=== PATIENT | female | born 1980 | race African-American/Black ===

== ENCOUNTER → 2019-04-07 | Outpatient (REF) | payer OTHER ==
[2019-04-07 21:51] LABS: APPEARANCE, URINE CLOUDY (CLEAR); BACTERIA, URINE AUTO NEGATIVE (NEGATIVE); BILIRUBIN, URINE AUTO NEGATIVE (NEGATIVE); BLOOD, URINE BLOOD 1+ (NEGATIVE); CALCIUM OXALATE CRYSTALS SMALL; COLOR, URINE YELLOW (YELLOW); GLUCOSE, URINE (UA) AUTO NEGATIVE (NEGATIVE); KETONE, URINE AUTO NEGATIVE (NEGATIVE); LEUKOCYTE ESTERASE, URINE AUTO 1+ (NEGATIVE); MUCUS, URINE SMALL (NEGATIVE); NITRITE, URINE AUTO NEGATIVE (NEGATIVE); PROTEIN, URINE AUTO NEGATIVE (NEGATIVE); RBC, URINE AUTO 5 /HPF (0-3); SPECIFIC GRAVITY URINE AUTO 1.024 (1.002-1.035); SQUAMOUS EPITHELIAL CELL UR AU 18 /HPF (0-6); WBC, URINE AUTO 14 /HPF (0-3)
== END ==
LOC: M LAB REF 10:34
PROVIDERS: ATTEND Nurse Practitioner Family
DX: N39.0 Urinary tract infection, site not specified (principal)

== ENCOUNTER → 2019-12-08 | Outpatient (REF) | payer OTHER ==
[2019-12-08 21:30] LABS: APPEARANCE, URINE CLOUDY (CLEAR); BACTERIA, URINE AUTO 1+ (NEGATIVE); BILIRUBIN, URINE AUTO NEGATIVE (NEGATIVE); BLOOD, URINE BLOOD NEGATIVE (NEGATIVE); COLOR, URINE YELLOW (YELLOW); GLUCOSE, URINE (UA) AUTO NEGATIVE (NEGATIVE); KETONE, URINE AUTO TRACE mg/dL (NEGATIVE); LEUKOCYTE ESTERASE, URINE AUTO TRACE (NEGATIVE); MUCUS, URINE SMALL (NEGATIVE); NITRITE, URINE AUTO NEGATIVE (NEGATIVE); PROTEIN, URINE AUTO 1+ mg/dL (NEGATIVE); RBC, URINE AUTO 12 /HPF (0-3); SQUAMOUS EPITHELIAL CELL UR AU 8 /HPF (0-6); WBC, URINE AUTO 4 /HPF (0-3)
== END ==
LOC: M LAB REF 21:12
PROVIDERS: ATTEND Physician Assistant Medical
DX: R30.0 Dysuria (principal)

== ENCOUNTER → 2021-03-20 | Outpatient (CLI) | payer OTHER ==
[~2021-03-20] MED LIST: BENA25CA4 PO; COLA100C5 PO; IBUP80TA PO; LOES1TAB7 PO; OMEP10CASR PO; OXYC1TAB23 PO
== END ==
LOC: M LABSMTC 11:11
PROVIDERS: ATTEND Anesthesiology
DX: Z01.818 Encounter for other preprocedural examination (principal); Z11.52 Encounter for screening for COVID-19

== ENCOUNTER 2021-03-25 09:22 | Day surgery (SDC) | payer OTHER ==
[~2021-03-25] VITALS: Ht 154.9 cm; Wt 141.1 kg
[~2021-03-25 09:22] MED LIST changes: -BENA25CA4 PO; -COLA100C5 PO; -IBUP80TA PO; +LR 1,000 ML IV ONE; -OMEP10CASR PO; -OXYC1TAB23 PO
[2021-03-25] MEDS ORDERED: OMEP10CASR PO (09:56)
[2021-03-25] MEDS ORDERED: BENA25CA4 PO (09:56)
[2021-03-25 10:03] LABS: MEAN CORPUSCULAR HEMOGLOBIN 26.9 pg (27.0-33.0); MEAN CORPUSCULAR HGB CONC 32.5 g/dl (32.0-36.5); MEAN CORPUSCULAR VOLUME 82.8 fl (80.0-96.0); PLATELET COUNT, AUTOMATED 295 10^3/uL (150-450); RED BLOOD COUNT 4.83 10^6/uL (4.00-5.40); WHITE BLOOD COUNT 8.5 10^3/uL (4.0-10.0)
[2021-03-25 10:30] LABS: HCG, SERUM QUALITATIVE NEGATIVE (NEGATIVE)
[2021-03-25] MEDS ORDERED: BUPIVACAINE HCL 0.25% 30ML VIAL As Ordered ONE (10:49)
[2021-03-25] MEDS ORDERED: LIDOCAINE 2% 100MG/5ML SDV (FOR ANES.) As Ordered ONE (11:20)
[2021-03-25] MEDS ORDERED: HYDROmorphone HCL 2 MG/ML 1ML VIAL (J1170) As Ordered ONE (11:20)
[2021-03-25] MEDS ORDERED: ROCURONIUM BROMIDE 50 MG/5 ML VIAL As Ordered ONE (11:20)
[2021-03-25] MEDS ORDERED: propofoL 200 MG/20 ML VIAL As Ordered ONE (11:20)
[2021-03-25] MEDS ORDERED: ONDANSETRON 4MG/2ML VIAL As Ordered ONE (11:20)
[2021-03-25] MEDS ORDERED: MIDAZOLAM INJ 2MG/2ML VIAL (J2250 PER 1MG) As Ordered ONE (11:20)
[2021-03-25] MEDS ORDERED: KETOROLAC 60MG 2ML VIAL As Ordered ONE (11:20)
[2021-03-25] MEDS ORDERED: fentaNYL 100 MCG/2 ML INJECTION (J3010) As Ordered ONE (11:20)
[2021-03-25] MEDS ORDERED: dexameTHASONE 4 MG/ML 1ML VIAL (J1100 PER 1MG) As Ordered ONE (11:20)
[2021-03-25] MEDS ORDERED: ACETAMINOPHEN 1000MG 100ML IV BTL (OFIRMEV) (J0131 PER 10MG) As Ordered ONE (11:21)
[2021-03-25] MEDS ORDERED: SUGAMMADEX SODIUM 500 MG/5 ML VIAL (BRIDION) As Ordered ONE (11:21)
--- NOTE | 2021-03-25 12:08 | ROOPDOC ---
[facility] Report Of Operation Report of Operation Date of procedure: 03/25/2021 Preoperative diagnosis: Satisfied parity. Postoperative diagnosis: Same Procedure: Laparoscopic bilateral salpingectomy Anesthesia: Gen. endotracheal Estimated blood loss 20 mL IV fluids replaced 1100 mL lactated Ringer's Drains: In and out catheter 50 mL of urine Complications: None Preoperative antibiotics: None indicated Specimens: Bilateral fallopian tubes Intraoperative findings: Normal size, shape, contour of the uterus. Normal adnexa/ovaries bilaterally. Minimal pelvic adhesions. Mild difficulty ventilating patient in steep Trendelenburg. Procedure: The patient was counseled and consented on the risks, benefits, indications, and alternatives of the procedure. Informed consent was obtained. She was taken to the operating room with an IV running. She was placed on the operating table in the dorsal supine position. Gen. anesthesia was administered and the airway was secured without any difficulty. A timeout was performed per protocol. She was prepared and draped in the normal sterile fashion. Attention was turned to the pelvis. The bladder was drained with in and out sterile catheter. A speculum was placed into the vagina with good visualization of the cervix. A single- tooth tenaculum was placed on the anterior lip of the cervix and downward traction was applied. The cervix was sequentially dilated with Yomi dilators up to a #16. A ZUMI uterine manipulator was placed without any difficulty. The single-tooth tenaculum was removed. The tenaculum sites were noted to be hemostatic. A sterile glove switch was performed. Attention was turned to the abdomen. A 5mm umbilical incision was made with the 11 blade. Through this incision, a Veress needle was placed into the intraperitoneal cavity. Intraperitoneal placement was confirmed with ease of flow of normal saline, a positive drop test and no return on aspiration. The opening pressure was 2 mmHg. The abdomen was insufflated with 2 L of CO2. The Veress needle was remov ed. A 5 mm laparoscopic trocar was placed under direct visualization without any difficulty, and intraperitoneal placement was confirmed. No incidental bleeding or injury was evident. The patient was placed in steep Trendelenburg. 2 additional laparoscopic port sites were placed through 5 mm incisions in the lower left quadrant. Each trocar/cannula was placed under direct visualization without any difficulty, incidental bleeding or injury. Attention was turned to the right fallopian tube. The right fallopian tube was followed out to the fimbriated end, grasped and elevated. The underlying mesosalpinx was sequentially clamped, coagulated and transected, until the level of the cornu was reached. At this level, the fallopian tube was clamped, coagulated and transected, thus amputating the fallopian tube. The fallopian tube was brought through the cannula without any difficulty and sent to pathology for permanent section. Attention was turned to the left fallopian tube. The left fallopian tube was fo llowed out to the fimbriated end, grasped and elevated. The underlying mesosalpinx was sequentially clamped, coagulated and transected, until the level of the cornu was reached. At this level the fallopian tube was clamped, coagulated and transected, thus amputating the fallopian tube. The fallopian tube was brought to the cannula without any difficulty and sent to pathology for permanent section. Both right and left surgical sites were noted to be completely hemostatic. The gas was released from the abdomen. The patient was taken out of Trendelenburg position. The cannulas were removed. The skin incisions were closed with 4-0 Monocryl in subcuticular fashion and reinforced with Dermabond. The uterine manipulator was removed, the vagina was noted to be clear of any sponge or instrument. Sponge, needle and instrument counts were correct per protocol. The patient tolerated the entire procedure very well. She was transferred to the PACU in good and stable condition. DO BROWN Chowdhury JONATHAN R. DO Mar 25, 2021 12:08
[2021-03-25] MEDS ORDERED: OXYC1TAB23 PO (12:12)
[2021-03-25] MEDS ORDERED: IBUP80TA PO (12:13)
[2021-03-25] MEDS ORDERED: COLA100C5 PO (12:13)
[2021-03-25] MEDS ORDERED: LR 1,000 ML IV SCH ×2 (12:40)
[2021-03-25] MEDS ORDERED: fentaNYL 100 MCG/2 ML INJECTION (J3010) IV PRN (12:40)
[2021-03-25] MEDS ORDERED: ONDANSETRON 4MG/2ML VIAL IV PRN (12:40)
[2021-03-25] MEDS ORDERED: oxyCODONE 5MG TAB PO PRN (12:40)
[2021-03-25] MEDS ORDERED: HYDROMORPHONE HCL 0.5 MG/ 0.5 ML SYRINGE (J1170 PER 1) IV PRN (12:40)
[2021-03-25 14:25] VITALS: BP 139/74
== END 2021-03-25 14:30 | disposition home or self-care (01) ==
LOC: M SDC 09:22
PROVIDERS: ATTEND Obstetrics & Gynecology
DX: Z30.2 Encounter for sterilization (principal); E66.9 Obesity, unspecified; F17.210 Nicotine dependence, cigarettes, uncomplicated; J30.89 Other allergic rhinitis; K21.9 Gastro-esophageal reflux disease without esophagitis; R06.83 Snoring; Z68.43 Body mass index [BMI] 50.0-59.9, adult; Z79.3 Long term (current) use of hormonal contraceptives; Z88.1 Allergy status to other antibiotic agents
CPT/HCPCS: 36415; 58661; 84703; 85027; 86850; 86900; 86901; 88302; J0131; J1100; J1170; J1885; J2250; J2405; J3010

== ENCOUNTER → 2021-05-03 | Outpatient (REF) | payer OTHER ==
[~2021-05-03] MED LIST changes: +BENA25CA4 PO; +COLA100C5 PO; +IBUP80TA PO; -LR 1,000 ML IV ONE; +OMEP10CASR PO; +OXYC1TAB23 PO
[2021-05-03 15:19] LABS: APPEARANCE, URINE HAZY (CLEAR); BACTERIA, URINE AUTO NEGATIVE (NEGATIVE); BILIRUBIN, URINE AUTO NEGATIVE (NEGATIVE); BLOOD, URINE BLOOD NEGATIVE (NEGATIVE); COLOR, URINE YELLOW (YELLOW); GLUCOSE, URINE (UA) AUTO 3+ mg/dL (NEGATIVE); KETONE, URINE AUTO 1+ mg/dL (NEGATIVE); LEUKOCYTE ESTERASE, URINE AUTO 1+ (NEGATIVE); NITRITE, URINE AUTO NEGATIVE (NEGATIVE); PROTEIN, URINE AUTO NEGATIVE (NEGATIVE); RBC, URINE AUTO 4 /HPF (0-3); SPECIFIC GRAVITY URINE AUTO 1.037 (1.002-1.035); SQUAMOUS EPITHELIAL CELL UR AU 8 /HPF (0-6); UROBILINOGEN, URINE AUTO 0.2 mg/dL (0.0-2.0); WBC, URINE AUTO 18 /HPF (0-3)
== END ==
LOC: M LAB REF 14:56
PROVIDERS: ATTEND Physician Assistant Medical
DX: N39.0 Urinary tract infection, site not specified (principal)

== ENCOUNTER 2022-07-12 22:07 | Inpatient (IN) | payer OTHER ==
[~2022-07-12] VITALS: Ht 154.9 cm; Wt 112.0 kg
[2022-07-12] MEDS ORDERED: L-NO1TBD6 (22:34)
[2022-07-12] MEDS ORDERED: METF500T13 (22:34)
[2022-07-12] MEDS ORDERED: NS 3,000 ML in IV 1 EA IV ONE (22:40)
[2022-07-12] MEDS ORDERED: HumuLIN R (REGULAR) INSULIN (NovoLIN R) **100U/ML** PER UNIT SC ONE (22:45)
[2022-07-12 23:10] LABS: VENOUS BASE EXCESS -8.8 (-2.0-2.0); VENOUS HCO3 14.4 MEQ/L (23.0-27.0); VENOUS O2 SATURATION 96.3 % (60.0-80.0); VENOUS PARTIAL PRESSURE CO2 25.3 mmHg (38.0-50.0); VENOUS PARTIAL PRESSURE O2 84.2 mmHg (30.0-50.0); VENOUS PH 7.373 UNITS (7.330-7.430); VENOUS STANDARD HCO3 17.5 MEQ/L; VENOUS TOTAL CO2 15.2 MEQ/L (24.0-28.0)
[2022-07-12 23:17] LABS: BASO % 0.3 % (0.0-1.0); EOS # 0.1 10^3/uL (0.0-0.5); EOS % 0.5 % (0.0-3.0); HEMATOCRIT 44.6 % (36.0-47.0); HEMOGLOBIN 14.3 g/dl (12.0-15.5); LYMPH # 5.5 10^3/uL (1.5-5.0); LYMPH % 35.2 % (24.0-44.0); MEAN CORPUSCULAR HEMOGLOBIN 26.7 pg (27.0-33.0); MEAN CORPUSCULAR HGB CONC 32.1 g/dl (32.0-36.5); MEAN CORPUSCULAR VOLUME 83.4 fl (80.0-96.0); MONO # 0.7 10^3/uL (0.0-0.8); MONO % 4.5 % (2.0-8.0); NEUTROPHILS # 9.2 10^3/uL (1.5-8.5); NEUTROPHILS % 58.9 % (36.0-66.0); PLATELET COUNT, AUTOMATED 161 10^3/uL (150-450); RED BLOOD COUNT 5.35 10^6/uL (4.00-5.40); WHITE BLOOD COUNT 15.7 10^3/uL (4.0-10.0)
[2022-07-12 23:29] LABS: INR 1.13; PROTHROMBIN TIME 14.7 SECONDS (12.5-14.5)
[2022-07-12 23:30] LABS: PARTIAL THROMBOPLASTIN TIME 23.8 SECONDS (24.8-34.2)
[2022-07-12 23:36] LABS: RSV AMPLIFICATION NEGATIVE (NEGATIVE)
[2022-07-12] MEDS ORDERED: LORazepam 2 MG/ML VIAL IV STA (23:37)
[2022-07-12] MEDS ORDERED: LORazepam 2 MG/ML VIAL As Ordered ONE (23:40)
[2022-07-12 23:59] LABS: ACETONE/KETONE 15.46 MG/DL (<2.81); ALBUMIN 3.6 GM/DL (3.2-5.2); BILIRUBIN,DIRECT 0.2 MG/DL (0.0-0.2); BILIRUBIN,TOTAL 0.4 MG/DL (0.2-1.0); C REACTIVE PROTEIN QUANTITATIV 5.02 MG/DL (0.00-0.30); CALCIUM LEVEL 9.5 MG/DL (8.5-10.1); CK-MB VALUE MASS < 1.0 NG/ML (<3.6); CPK CREATINE PHOSPHOKINASE 121 U/L (26-192); CREATININE FOR GFR 1.45 MG/DL (0.55-1.30); GLOMERULAR FILTRATION RATE 42.6 (>58); MB/CK RELATIVE INDEX 0.83 (< OR =4); TOTAL PROTEIN 6.9 GM/DL (6.4-8.2)
[2022-07-13] VITALS (7 sets, daily range): BP systolic 110–159; BP diastolic 58–98
[2022-07-13] MEDS ORDERED: KCL 20MEQ in NS 1000ML 1,000 ML IV SCH (00:35)
[2022-07-13] MEDS ORDERED: INSULIN IV RATE CHANGE DOCUMENTATION ML/HR XX SCH ×4 (00:35→08:05)
[2022-07-13] MEDS ORDERED: INSULIN REGULAR IN 0.9 % NACL 100 UNIT in IV 1 EA IV SCH ×10 (00:35→08:15)
[2022-07-13 01:32] LABS: CK-MB VALUE MASS 1.2 NG/ML (<3.6); MB/CK RELATIVE INDEX 1.76 (< OR =4)
[2022-07-13] MEDS ORDERED: L-NO1TBD6 PO (01:41)
[2022-07-13] MEDS ORDERED: METF500T13 PO (01:41)
[2022-07-13] MEDS ORDERED: HOME MED LIST COMPLETE! XX SCH (01:45)
[2022-07-13 02:27] LABS: CK-MB VALUE MASS 1.7 NG/ML (<3.6); MB/CK RELATIVE INDEX 2.36 (< OR =4)
[2022-07-13] MEDS ORDERED: LR 1,000 ML IV ONE (04:00)
[2022-07-13 04:48] LABS: CALCIUM LEVEL 6.9 MG/DL (8.5-10.1); CREATININE FOR GFR 1.35 MG/DL (0.55-1.30); GLOMERULAR FILTRATION RATE 46.2 (>58); POTASSIUM SERUM 4.4 MEQ/L (3.5-5.1)
[2022-07-13] MEDS ORDERED: PIPERACILLIN/TAZOBACTAM SOD 3.375 GM in D5W MINI-BAG PLUS 50 ML IV SCH (06:00)
[2022-07-13] MEDS ORDERED: POTASSIUM CHLORIDE INJ 20 MEQ in LR 1,000 ML IV SCH (07:00)
[2022-07-13 07:36] LABS: CALCIUM LEVEL 8.9 MG/DL (8.5-10.1); CREATININE FOR GFR 1.28 MG/DL (0.55-1.30); GLOMERULAR FILTRATION RATE 49.2 (>58); PHOSPHORUS LEVEL 2.8 MG/DL (2.5-4.9); POTASSIUM SERUM 4.5 MEQ/L (3.5-5.1)
[2022-07-13 07:37] LABS: VENOUS BASE EXCESS -12.5 (-2.0-2.0); VENOUS HCO3 11.9 MEQ/L (23.0-27.0); VENOUS O2 SATURATION 98.3 % (60.0-80.0); VENOUS PARTIAL PRESSURE CO2 24.6 mmHg (38.0-50.0); VENOUS PARTIAL PRESSURE O2 128.2 mmHg (30.0-50.0); VENOUS PH 7.303 UNITS (7.330-7.430); VENOUS STANDARD HCO3 14.9 MEQ/L; VENOUS TOTAL CO2 12.7 MEQ/L (24.0-28.0)
[2022-07-13] MEDS ORDERED: REMDESIVIR 200 MG in NS 250 ML IV ONE (08:00)
[2022-07-13 08:18] LABS: HEMOGLOBIN A1c 12.7 %
[2022-07-13 08:25] LABS: CALCIUM LEVEL 8.7 MG/DL (8.5-10.1); CREATININE FOR GFR 1.08 MG/DL (0.55-1.30); GLOMERULAR FILTRATION RATE 59.8 (>58); PHOSPHORUS LEVEL 2.2 MG/DL (2.5-4.9); POTASSIUM SERUM 4.1 MEQ/L (3.5-5.1)
[2022-07-13] MEDS ORDERED: PANTOPRAZOLE 40MG VIAL IV SCH (09:00)
[2022-07-13] MEDS: HEPARIN SOD (PORCINE) 5000UNITS/ML 1ML VIAL/SYRINGE SQ SCH ×2 (09:45→14:20)
[2022-07-13] MEDS: INSULIN IV RATE CHANGE DOCUMENTATION ML/HR XX SCH ×5 (09:57→17:28)
[2022-07-13] MEDS ORDERED: SODIUM CHLORIDE 0.9% INJ 10 ML SYR IV ONE (10:00)
[2022-07-13] MEDS ORDERED: NS 1,000 ML IV ONE ×2 (10:25→11:00)
[2022-07-13 13:16] LABS: ALBUMIN 2.2 GM/DL (3.2-5.2); ALKALINE PHOSPHATASE 70 U/L (45-117); ALT/SGPT 151 U/L (12-78); AST/SGOT 247 U/L (7-37); BILIRUBIN,TOTAL 0.2 MG/DL (0.2-1.0); BLOOD UREA NITROGEN 11 MG/DL (7-18); CALCIUM LEVEL 6.8 MG/DL (8.5-10.1); CARBON DIOXIDE LEVEL 17 MEQ/L (21-32); CHLORIDE LEVEL 121 MEQ/L (98-107); CREATININE FOR GFR 0.66 MG/DL (0.55-1.30); GLOMERULAR FILTRATION RATE > 60.0 (>58); GLUCOSE, FASTING 176 MG/DL (70-100); MAGNESIUM LEVEL 1.4 MG/DL (1.8-2.4); POTASSIUM SERUM 3.5 MEQ/L (3.5-5.1); SODIUM LEVEL 145 MEQ/L (136-145); TOTAL PROTEIN 4.9 GM/DL (6.4-8.2)
[2022-07-13] MEDS ORDERED: D5W/LR 1,000 ML IV SCH (15:55)
[2022-07-13 17:41] LABS: ALBUMIN 3.3 GM/DL (3.2-5.2); ALKALINE PHOSPHATASE 110 U/L (45-117); ALT/SGPT 405 U/L (12-78); AST/SGOT 759 U/L (7-37); BILIRUBIN,TOTAL 0.2 MG/DL (0.2-1.0); BLOOD UREA NITROGEN 11 MG/DL (7-18); CALCIUM LEVEL 8.9 MG/DL (8.5-10.1); CARBON DIOXIDE LEVEL 18 MEQ/L (21-32); CHLORIDE LEVEL 114 MEQ/L (98-107); CREATININE FOR GFR 0.77 MG/DL (0.55-1.30); GLOMERULAR FILTRATION RATE > 60.0 (>58); GLUCOSE, FASTING 205 MG/DL (70-100); MAGNESIUM LEVEL 1.8 MG/DL (1.8-2.4); PHOSPHORUS LEVEL 2.1 MG/DL (2.5-4.9); POTASSIUM SERUM 4.4 MEQ/L (3.5-5.1); SODIUM LEVEL 143 MEQ/L (136-145); TOTAL PROTEIN 6.6 GM/DL (6.4-8.2)
[2022-07-13] MEDS ORDERED: MAG SULF 1GM/100ML (MAG RUN) 1 GM in IV 1 EA IV SCH (18:05)
[2022-07-13] MEDS ORDERED: ONDANSETRON 4MG 2ML VIAL As Ordered ONE (20:51)
[2022-07-13] MEDS ORDERED: ONDANSETRON 4MG 2ML VIAL IV SCH (21:00)
[2022-07-13] MEDS ORDERED: LEVEMIR (INSULIN DETEMIR) 1 UNITS/0.01ML SC SCH (21:00)
[2022-07-13] MEDS ORDERED: METOPROLOL 5 MG/5 ML VIAL As Ordered ONE (21:47)
[2022-07-13] MEDS ORDERED: METOPROLOL 5 MG/5 ML VIAL IV STA (21:48)
[2022-07-13] MEDS ORDERED: DEXTROSE 50% 50 ML SYRINGE IV PRN (22:20)
[2022-07-13] MEDS ORDERED: GLUCOSE 4GM CHEW TABLET PO PRN (22:20)
[2022-07-13] MEDS ORDERED: GLUCAGON INJ 1MG VIAL SC PRN (22:20)
[2022-07-13] MEDS ORDERED: ALTEPLASE 2MG/2ML VIAL IV STA (22:41)
[2022-07-13] MEDS ORDERED: ALTEPLASE 100MG VIAL As Ordered ONE (22:44)
[2022-07-13] MEDS ORDERED: HEPARIN SOD (PORCINE) 5000UNITS/ML 1ML VIAL/SYRINGE IV PRN (22:50)
[2022-07-13] MEDS ORDERED: HEPARIN DRIP 25,000 UNITS in IV 1 EA IV SCH (22:50)
[2022-07-13 22:59] LABS: ABG STANDARD HCO3 10.2 MEQ/L (22.0-26.0)
[2022-07-13 23:00] LABS: ABG BASE EXCESS -19.4 (-2.0-2.0); ABG HCO3 11.5 MEQ/L (22.0-26.0); ABG O2 SATURATION 94.1 % (95.0-99.0); ABG PARTIAL PRESSURE CO2 47.3 mmHg (35.0-45.0); ABG PARTIAL PRESSURE O2 104.5 mmHg (75.0-100.0); ABG TOTAL CO2 12.9 MEQ/L (22.0-29.0)
[2022-07-13] MEDS ORDERED: ALTEPLASE RECOMBINANT IV ONE (23:00)
[2022-07-13 23:01] LABS: ABG pH (ARTERIAL) 7.003 UNITS (7.350-7.450)
[2022-07-13] MEDS ORDERED: EPINEPHrine HCL INJ 1 MG in D5W 240 ML IV SCH (23:05)
[2022-07-13 23:10] LABS: BASO % 0.2 % (0.0-1.0); EOS % 0.1 % (0.0-3.0); HEMATOCRIT 42.1 % (36.0-47.0); LYMPH # 9.7 10^3/uL (1.5-5.0); MEAN CORPUSCULAR HEMOGLOBIN 27.3 pg (27.0-33.0); MEAN CORPUSCULAR HGB CONC 30.9 g/dl (32.0-36.5); MEAN CORPUSCULAR VOLUME 88.3 fl (80.0-96.0); MONO # 0.7 10^3/uL (0.0-0.8); MONO % 4.4 % (2.0-8.0); NEUTROPHILS # 4.6 10^3/uL (1.5-8.5); NEUTROPHILS % 30.2 % (36.0-66.0); RED BLOOD COUNT 4.77 10^6/uL (4.00-5.40); WHITE BLOOD COUNT 15.2 10^3/uL (4.0-10.0)
[2022-07-13 23:24] LABS: PLATELET COUNT, AUTOMATED 47 10^3/uL (150-450)
[2022-07-13] MEDS ORDERED: MAGNESIUM SULFATE 1GM/100ML D5W BAG (10MG/ML) As Ordered ONE (23:24)
[2022-07-13] MEDS ORDERED: fentaNYL CITRATE/NaCl 1,000 MCG in IV 1 EA IV SCH (23:40)
[2022-07-13] MEDS ORDERED: FENTANYL DRIP LOCK BOX KEY 1 EACH XX PRN (23:40)
[2022-07-13 23:43] LABS: ABG STANDARD HCO3 8.7 MEQ/L (22.0-26.0)
[2022-07-13] MEDS ORDERED: AMIODARONE 150MG/3ML INJ (J0282) IVP STA (23:43)
[2022-07-13] MEDS ORDERED: AMIODARONE 150MG/3ML INJ (J0282) As Ordered ONE (23:43)
[2022-07-13 23:44] LABS: ABG BASE EXCESS -21.8 (-2.0-2.0); ABG HCO3 9.3 MEQ/L (22.0-26.0); ABG PARTIAL PRESSURE CO2 41.5 mmHg (35.0-45.0); ABG PARTIAL PRESSURE O2 157.4 mmHg (75.0-100.0); ABG TOTAL CO2 10.6 MEQ/L (22.0-29.0)
[2022-07-13 23:45] LABS: ABG pH (ARTERIAL) 6.968 UNITS (7.350-7.450)
[2022-07-13] MEDS ORDERED: AMIODARONE HCL 150 MG/100 ML PREMIXED BAG (NEXTERONE) As Ordered ONE (23:45)
[2022-07-13 23:47] LABS: CREATININE FOR GFR 1.11 MG/DL (0.55-1.30); MAGNESIUM LEVEL 2.1 MG/DL (1.8-2.4); POTASSIUM SERUM 6.9 MEQ/L (3.5-5.1)
[2022-07-13 23:57] LABS: CK-MB VALUE MASS 5.1 NG/ML (<3.6); MB/CK RELATIVE INDEX 2.03 (< OR =4)
[2022-07-14] MEDS ORDERED: SODIUM BICARBONATE 150 MEQ in STERILE WATER LITER BAG 1,000 ML IV SCH (01:00)
[2022-07-14] MEDS ORDERED: EPINEPHrine 1MG/10ML SYRINGE 1.5IN ONE (01:27)
[2022-07-14] MEDS ORDERED: SODIUM BICARBONATE 4.2% INJ 10ML SYRINGE ONE (01:27)
[2022-07-14] MEDS ORDERED: SODIUM BICARBONATE 8.4% INJ 50ML SYRINGE ONE (01:27)
[2022-07-14] MEDS ORDERED: CALCIUM CHLORIDE 10% 1 GM/10 ML SYR ONE (01:27)
[2022-07-14] MEDS ORDERED: ETOMIDATE INJ 20MG/10ML VIAL ONE (01:48)
[2022-07-14] MEDS ORDERED: ROCURONIUM BROMIDE 50 MG/5 ML VIAL ONE (01:48)
[2022-07-14] MEDS ORDERED: SUCCINYLCHOLINE 100 MG/5 ML SYRINGE (J0330) ONE (01:48)
[2022-07-14] MEDS ORDERED: NS 1,000 ML IV ONE (02:45)
[2022-07-14] MEDS ORDERED: ETOMIDATE INJ 20MG/10ML VIAL IV STA (02:47)
[2022-07-14] MEDS ORDERED: SUCCINYLCHOLINE INJ 200 MG/10 ML VIAL (J0330) IV STA (02:47)
[2022-07-14] MEDS ORDERED: dexmedeTOMidine 200 MCG in IV 1 EA IV SCH (03:10)
[2022-07-14] MEDS ORDERED: MAG SULF 1GM/100ML (MAG RUN) 1 GM in IV 1 EA IV ONE (03:15)
[2022-07-14] MEDS ORDERED: AMIODARONE HCL 150 MG in IV 1 EA IV ONE (03:40)
[2022-07-14] MEDS ORDERED: INSULIN LISPRO (NovoLOG) PER UNIT SC SCH ×2 (07:30→21:00)
[2022-07-14] MEDS ORDERED: REMDESIVIR 100 MG in NS 250 ML IV SCH (08:00)
[2022-07-14] MEDS ORDERED: SODIUM CHLORIDE 0.9% INJ 10 ML SYR IV SCH (09:00)
== END 2022-07-14 00:29 | disposition expired | DRG 720 ==
LOC: M ED 22:07 → EDBD 22:07 → M ED INP 07-13 04:19 → ENRESERV 07-13 04:37 → M ICU 07-13 06:12
PROVIDERS: ADMIT Internal Medicine Critical Care Medicine; ATTEND Internal Medicine Critical Care Medicine
PROC: 02HV33Z Insertion of Infusion Device into Superior Vena Cava, Percutaneous Approach (ICD-10-PCS; principal; 2022-07-14)
DX: A41.9 Sepsis, unspecified organism (principal); I21.A1 Myocardial infarction type 2; I26.99 Other pulmonary embolism without acute cor pulmonale; U07.1 COVID-19; E11.10 Type 2 diabetes mellitus with ketoacidosis without coma; N17.9 Acute kidney failure, unspecified; Z88.8 Allergy status to other drugs, medicaments and biological substances; Z79.899 Other long term (current) drug therapy